=== PATIENT | female | born 1970 | race Caucasian/White ===

== ENCOUNTER 2019-09-13 00:44 | Inpatient (IN) | payer MEDICARE, OTHER ==
[~2019-09-13] VITALS: Ht 180.3 cm; Wt 145.7 kg
--- NOTE | 2019-09-13 02:26 | NUR ---
unable to obtain blood draw due to patient with no vein to obtain blood. Dr Castro aware.
--- NOTE | 2019-09-13 04:42 | NUR ---
Patient sleeping on gurny in room with no distress noted.
--- NOTE | 2019-09-13 05:00 | NUR ---
Dr Castro unable to obtain blood sample at this time.
--- NOTE | 2019-09-13 06:40 | NUR ---
Informed warehouse team leader of need of Piccline.
[2019-09-13 07:12] LABS: *BILIRUBIN,URIN NEGATIVE (NEGATIVE); *BLOOD, URINE NEGATIVE (NEGATIVE); *CLARITY,URINE CLEAR (CLEAR); *COLOR,URINE YELLOW (YELLOW); *KETONES,URINE NEGATIVE (NEGATIVE); *UROBILINOGEN,URINE 0.2 E.U./dl (NORMAL); LEUKOCYTE ESTERASE ,URINE NEGATIVE (NEGATIVE); NITRITE, URINE NEGATIVE (NEGATIVE); PH,URINE 6.5 (5.0-8.0); UGLUCOSE NEGATIVE (NEGATIVE)
--- NOTE | 2019-09-13 07:18 | NUR ---
Patient refused CT scan@this time, MD is aware, pending PICC line insertion.
[2019-09-13 07:27] LABS: *AMPHETAMINE, URINE NEGATIVE (NEGATIVE); *BARBITURATE, URINE NEGATIVE (NEGATIVE); *CANNABINOID, URINE NEGATIVE (NEGATIVE); *COCCAINE, URINE NEGATIVE (NEGATIVE); *OPIATE, URINE POSITIVE (NEGATIVE); *PHENCYCLIDINE SCREEN,URINE NEGATIVE (NEGATIVE)
[2019-09-13 08:02] LABS: BACTERIA,URINE NONE SEEN /HPF (NONE SEEN); RBC,URINE NONE SEEN /HPF (0-3); SQUAMOUS EPITHELIAL CELL,UR MODERATE /HPF (NONE SEEN); WBC,URINE 0-3 /HPF (0-3)
[2019-09-13] MEDS ORDERED: LORAZEPAM 1 MG TABLET ONE (08:08)
[2019-09-13] MEDS ORDERED: LORAZEPAM 0.5 MG TABLET PO ONE (08:15)
--- NOTE | 2019-09-13 08:47 | NUR ---
Patient is resting comfortably on gurney with eyes closed, high anand's position, respiration:easy, calm, NAD.
[2019-09-13] MEDS ORDERED: ACETAMINOPHEN ES 500 MG TABLET ONE (08:59)
[2019-09-13] MEDS ORDERED: ASPIRIN 325 MG TABLET ONE (09:00)
[2019-09-13] MEDS ORDERED: ASPIRIN 325 MG TABLET PO ONE (09:00)
--- NOTE | 2019-09-13 10:15 | NUR ---
Heart rate ranges from 130's/min to high 140's/min, MD is aware. No new orders@this time.
--- NOTE | 2019-09-13 10:22 | NUR ---
Patient used bedside commode to do BM, still for PICC line insertion@this time, no acute change in condition seen. Patient wants IV morphine & MD rufus notified.
--- NOTE | 2019-09-13 10:54 | NUR ---
Patient had normal BM using bedside commode. Stephanie-anal care assisted. PICC line nurse is here to do PICC insertion.
[2019-09-13] MEDS ORDERED: MORPHINE SULFATE 2 MG/1 ML DISP.SYRIN IV ONE ×3 (11:00→20:00)
[2019-09-13] MEDS ORDERED: AMIODARONE HCL IV 150 MG in IV DEXTROSE 5% 100 ML IV ONE (11:00)
[2019-09-13] MEDS ORDERED: LORAZEPAM 2 MG/1 ML VIAL IV ONE (11:00)
[2019-09-13] MEDS ORDERED: LORAZEPAM 2 MG/1 ML VIAL ONE (11:36)
[2019-09-13] MEDS ORDERED: MORPHINE SULFATE 2 MG/1 ML DISP.SYRIN ONE (11:36)
[2019-09-13 11:55] LABS: BASOPHILS # (AUTO) 0.1 K/uL (0.0-8.0); BASOPHILS % (AUTO) 0.8 % (0.0-2.0); EOSINOPHILS # (AUTO) 0.1 K/uL (0.0-0.7); EOSINOPHILS % (AUTO) 0.9 % (0.0-7.0); LYMPHOCYTES # (AUTO) 1.2 K/uL (20.0-40.0); LYMPHOCYTES % (AUTO) 11.4 % (20.5-51.5); MEAN CORPUSCULAR HGB CONC 33 g/dL (32.3-35.6); MEAN CORPUSCULAR VOLUME 84.1 fL (75.5-95.3); MONOCYTES # (AUTO) 0.8 K/uL (2.0-10.0); MONOCYTES % (AUTO) 7.6 % (0.0-11.0); NEUTROPHILS # (AUTO) 8.5 K/uL (1.8-8.9); NEUTROPHILS % (AUTO) 79.3 % (38.5-71.5); PLATELET COUNT (AUTO) 315 K/uL (179-408); RED BLOOD CELL COUNT(AUTO) 4.28 MIL/uL (3.63-4.92); WHITE BLOOD COUNT (AUTO) 10.8 K/uL (3.8-11.8)
--- NOTE | 2019-09-13 12:02 | NUR ---
Patient wants more Morphine, MD is notified.
[2019-09-13 12:09] LABS: ETHANOL < 3 MG/DL (0-0)
[2019-09-13 12:16] LABS: CARBON DIOXIDE 24 mmol/L (21-32); CHLORIDE 109 mmol/L (98-107); CREATININE 0.6 mg/dL (0.6-1.3); GLUCOSE 91 mg/dL (74-106); POTASSIUM 3.6 mmol/L (3.5-5.1); UREA NITROGEN, BLOOD 12 mg/dL (7-18)
[2019-09-13 12:20] LABS: ALANINE AMINOTRANSFERASE 28 U/L (14-59); ALKALINE PHOSPHATASE 73 U/L (50-136); ASPARTATE AMINOTRANSFERASE 24 U/L (15-37); BILIRUBIN,DIRECT 0.1 mg/dL (0.0-0.2); BILIRUBIN,TOTAL 0.2 mg/dL (0.2-1.0); TOTAL PROTEIN, SERUM 6.4 g/dL (6.4-8.2)
[2019-09-13 12:23] LABS: ACETAMINOPHEN < 2.0 ug/mL (10-30)
[2019-09-13 12:30] LABS: THYROID STIMULATING HORMONE 0.692 mIU/mL (0.358-3.740)
--- NOTE | 2019-09-13 12:44 | NUR ---
ALEX Augustin is here & evaluating the patient.
--- NOTE | 2019-09-13 12:56 | NUR ---
Patient is eating cardiac tray with good appetite, for transfer to 3rd floor as soon as possible.
[2019-09-13] MEDS ORDERED: Z GUARD REMEDY PASTE 57 GM TUBE TOP PRN (13:15)
[2019-09-13] MEDS ORDERED: HYDROCODONE/APAP 10-325 MG TABLET PO PRN (13:15)
[2019-09-13] MEDS ORDERED: HYDROCODONE/APAP 5-325MG TABLET PO PRN (13:15)
[2019-09-13] MEDS ORDERED: ACETAMINOPHEN 325 MG TABLET PO PRN (13:15)
--- NOTE | 2019-09-13 13:30 | NUR ---
Patient is ready to move to 3rd floor telemetry unit. ER registration staff Rhett notified for "roll-over" process so patient can go to telemetry floor. OUT for lunch, endorsed to PING Valencia accordingly.
[2019-09-13] MEDS ORDERED: LORAZEPAM 0.5 MG TABLET PO PRN (14:00)
--- NOTE | 2019-09-13 14:30 | NUR ---
Admitted 49 year old female to telemetry with dx of afib with RVR. AAOx4. Rapid afib on monitor. Initial assessment completed. No s/s of acute distress at this time. Receiving 2L o2 via NC. PICC on SAMUEL intact and patent. Safety measures implemented. Call light within reach. Will continue to monitor.
--- NOTE | 2019-09-13 14:38 | NUR ---
ER registraion staff Rhett said that this patient needs insurance notification & authorization. Patient is seen sleeping, no acute change seen. Heart rate ranges from high 110's/min to 130's/min. updated re: admission process.
--- NOTE | 2019-09-13 15:14 | NUR ---
Patient left ER in stable condition.
[2019-09-13] MEDS ORDERED: DILTIAZEM HCL 25 MG IV IV ONE (15:49)
[2019-09-13 15:50] VITALS: BP 113/78
[2019-09-13] MEDS: METOPROLOL SUCCINATE XL 50 MG TAB.SR.24H PO SCH (15:56)
[2019-09-13] MEDS: APIXABAN 5 MG TABLET PO SCH (18:16)
[2019-09-13] MEDS: ONDANSETRON 4 MG/2 ML VIAL IV PRN (18:33)
--- NOTE | 2019-09-13 19:00 | NUR ---
PATIENT ALERT ORIENTED, NO SOB NO CHEST PAIN, TELE MONITOR A FIB WITH RVR, PATIENT WAS SEEN BY BLUEPRINT MACHINE OPERATOR WITH ORDERS ALREADY. PATIENT HAS ANXIETY, PATIENT REFUSING TO TAKE ATIVAN 1MG PO THAT WAS PRESCRIBE BY MD. PATIENT IN BED EATING AND DRINKING, NO S/S OF DISTRESS AT THIS TIME. PASCUAL JIMENEZ WAS AWARE OF PATIENT REQUEST OF ATIVAN IV, AND MORPHINE VIA IV ALSO, WILL CALL PASCUAL JIMENEZ AGAIN FOR THE REQUEST.
--- NOTE | 2019-09-13 19:54 | NUR ---
PATIENT REQUESTING MORPHINE IV AND ATIVAN IV ALSO. NOTIFY PASCUAL JIMENEZ WITH ORDER TO GIVE MORPHINE 2MG IV ONE TIME ONLY, AND TO GIVE ATIVAN 1MG PO PREVIOUSLY ORDERED.
[2019-09-13] MEDS: LORAZEPAM 1 MG TABLET PO PRN (20:03)
[2019-09-13] MEDS: DILTIAZEM HCL 90 MG TABLET PO SCH (20:08)
[2019-09-13 20:32] VITALS: BP 116/67
--- NOTE | 2019-09-13 21:29 | NUR ---
PATIENT REQUESTING BENADRY FOR ITCHING, GUIAFENESEN FOR CONGESTION. NOTIFY PASCUAL JIMENEZ LEFT A MESSAGE AWAITING FOR RESPONSE. PATIENT ALERT ORIENTED, NO S/S OF DISTRESS, CONT TO MONITOR.
[2019-09-14] VITALS (10 sets, daily range): BP systolic 97–135; BP diastolic 49–87
--- NOTE | 2019-09-14 01:06 | NUR ---
PATIENT REFUSED LAB DRAW TROPONIN, EXPLAINED THE RISK AND BENEFIT. NOTIFY DIMTRY HATCHERY EMPLOYEE PATIENT REQUEST FOR MORPINE, ATIVAN AND BENEDRYL, WITH ORDERS. PATIENT NON COMPLAINT WITH CARE.
[2019-09-14] MEDS ORDERED: MORPHINE SULFATE 2 MG/1 ML DISP.SYRIN IV ONE ×2 (01:15→05:45)
[2019-09-14] MEDS ORDERED: LORAZEPAM 2 MG/1 ML VIAL IV PRN (01:15)
[2019-09-14] MEDS ORDERED: diphenhydrAMINE 25 MG CAP PO PRN (01:15)
--- NOTE | 2019-09-14 05:32 | NUR ---
NOTIFY ANATOLY PETERS SERVICE CAR DRIVER THAT PATIENT HAS GEN BODY AND REQUESTING MORPHINE, NOTIFY ANATOLY THAT PATIENT HAS NARCO ORDER BUT PATIENT ALLERGIC TO TYLENOL. ANATOLY WITH ORDER OF MORPHINE 2MG IV ONE TIME ORDER AGAIN.
[2019-09-14 06:59] LABS: BASOPHILS # (AUTO) 0.1 K/uL (0.0-8.0); BASOPHILS % (AUTO) 1.2 % (0.0-2.0); EOSINOPHILS # (AUTO) 0.2 K/uL (0.0-0.7); EOSINOPHILS % (AUTO) 2.5 % (0.0-7.0); HEMOGLOBIN 11.3 g/dL (10.9-14.3); LYMPHOCYTES # (AUTO) 1.5 K/uL (20.0-40.0); LYMPHOCYTES % (AUTO) 18.9 % (20.5-51.5); MEAN CORPUSCULAR HEMOGLOBIN 27.8 uug (24.7-32.8); MEAN CORPUSCULAR HGB CONC 32 g/dL (32.3-35.6); MEAN CORPUSCULAR VOLUME 86.4 fL (75.5-95.3); MONOCYTES # (AUTO) 0.7 K/uL (2.0-10.0); NEUTROPHILS # (AUTO) 5.4 K/uL (1.8-8.9); NEUTROPHILS % (AUTO) 68.4 % (38.5-71.5); PLATELET COUNT (AUTO) 286 K/uL (179-408); RED BLOOD CELL COUNT(AUTO) 4.05 MIL/uL (3.63-4.92); WHITE BLOOD COUNT (AUTO) 7.8 K/uL (3.8-11.8)
--- NOTE | 2019-09-14 07:10 | NUR ---
PATIENT ALERT ORIENTED, PATIENT NEEDY, REQUEST MULTIPLE TIME FOR PUDDING, SODAS DESPITE SANDWICHES WAS GIVEN BEFORE BEDTIME. PATIENT SLEEP INTERMITTENTLY, WATCHING CLOCK, GIVEN MORPHINE MULTIPLE TIMES FOR PAIN, AND ATIVAN. PATIENT HAS MANIPULATIVE BEHAVIOR, SEEK DIFFERENT KIND DRUGS. MD WAS AWARE OF THE PATIENT MULTIPLE DRUGS REQUEST.
--- NOTE | 2019-09-14 07:30 | NUR ---
Received patient in bed, awake and verbally responsive. No signs of distress noted. No SOB. Will clarify pain medication to REED OR WIND INSTRUMENT TUNER Augustin, kept clean and comfortable. Will continue to monitor.
[2019-09-14 07:33] LABS: CREATININE 1.1 mg/dL (0.6-1.3); POTASSIUM 4.2 mmol/L (3.5-5.1)
[2019-09-14 07:34] LABS: PHOSPHOROUS 4.8 mg/dL (2.5-4.9)
[2019-09-14] MEDS: DILTIAZEM HCL 90 MG TABLET PO SCH ×2 (08:13→20:25)
[2019-09-14] MEDS: METOPROLOL SUCCINATE XL 50 MG TAB.SR.24H PO SCH (08:14)
[2019-09-14] MEDS: LORAZEPAM 1 MG TABLET PO PRN ×2 (08:14→16:14)
[2019-09-14] MEDS: APIXABAN 5 MG TABLET PO SCH ×2 (08:16→16:12)
[2019-09-14 08:57] LABS: THYROID STIMULATING HORMONE 1.601 mIU/mL (0.358-3.740)
[2019-09-14] MEDS: ONDANSETRON 4 MG/2 ML VIAL IV PRN (09:44)
[2019-09-14] MEDS: FUROSEMIDE 40 MG TABLET PO SCH ×2 (11:15→11:32)
[2019-09-14] MEDS ORDERED: OXYCODONE HCL 5 MG TABLET PO PRN (11:15)
[2019-09-14] MEDS: OXYCODONE HCL 5 MG TABLET PO PRN (11:35)
[2019-09-14] MEDS: BENZONATATE 100 MG CAPSULE PO PRN (12:50)
--- NOTE | 2019-09-14 12:57 | NUR ---
Patient refused lasix 40 mg tablet PO, explained risk and benefits, still refused.
--- NOTE | 2019-09-14 13:14 | NUR ---
Weaned to Room Air, patient saturating 97%. No signs of SOB.
--- NOTE | 2019-09-14 16:30 | NUR ---
Seen by Dr. Denney with Order of LAsix 20mg IV, and Amiodararone drip. Patient will be transferred to CCU.
[2019-09-14] MEDS ORDERED: AMIODARONE HCL IV 900 MG in IV DEXTROSE 5% 482 ML IV PRN (17:00)
[2019-09-14] MEDS ORDERED: AMIODARONE HCL IV 150 MG in IV DEXTROSE 5% 100 ML IV ONE (17:00)
--- NOTE | 2019-09-14 17:00 | NUR ---
Gave report to Thalia CCIvette.
[2019-09-14] MEDS: FUROSEMIDE 20 MG/2 ML VIAL IV SCH (17:15)
--- NOTE | 2019-09-14 17:45 | NUR ---
PATIENT BROUGHT UP TO THE UNIT BY SHERI OSEGUERA. RECIEVED REPORT FROM ALEXX. PATIENT ROLLING INTO THE UNIT AND IS ASKING FOR PAIN MEDICATION, A NEW PRIMARY DOCTOR, AND WANTS TO TALK TO THE HEALTH SERVICE WORKER. PATIENT WAS BROUGHT UP TO THE ICU TO INITIATE AMIODARONE PER PROTOCOL. PATIENT ON IV LASIX AND PLACED AMANDA.
[2019-09-14] MEDS: METOPROLOL TARTRATE 50 MG TABLET PO SCH (20:25)
[2019-09-14] MEDS: MORPHINE SULFATE 2 MG/1 ML DISP.SYRIN IV PRN (20:26)
[2019-09-14] MEDS: GUAIFENESIN/DEXTROMETHORPHAN 5 ML UDC PO PRN (21:26)
[2019-09-14] MEDS: LORAZEPAM 2 MG/1 ML VIAL IV PRN (22:08)
[2019-09-14] MEDS: diphenhydrAMINE 50 MG/1 ML VIAL IV PRN (22:45)
[2019-09-15] VITALS (11 sets, daily range): BP systolic 95–144; BP diastolic 53–75
[2019-09-15] MEDS: MORPHINE SULFATE 2 MG/1 ML DISP.SYRIN IV PRN ×6 (00:15→18:07)
[2019-09-15] MEDS: OXYCODONE HCL 5 MG TABLET PO PRN ×2 (01:11→09:04)
[2019-09-15] MEDS: GUAIFENESIN/DEXTROMETHORPHAN 5 ML UDC PO PRN (02:19)
[2019-09-15] MEDS ORDERED: BENZONATATE 100 MG CAPSULE ONE (02:28)
[2019-09-15] MEDS: LORAZEPAM 2 MG/1 ML VIAL IV PRN (03:20)
[2019-09-15] MEDS: BENZONATATE 100 MG CAPSULE PO PRN (04:14)
[2019-09-15] MEDS: diphenhydrAMINE 50 MG/1 ML VIAL IV PRN ×3 (06:03→20:25)
[2019-09-15] MEDS: DILTIAZEM HCL 90 MG TABLET PO SCH ×2 (08:36→21:14)
[2019-09-15] MEDS: METOPROLOL TARTRATE 50 MG TABLET PO SCH ×2 (08:37→18:32)
[2019-09-15] MEDS: APIXABAN 5 MG TABLET PO SCH ×2 (08:38→16:29)
[2019-09-15] MEDS: FUROSEMIDE 20 MG/2 ML VIAL IV SCH (08:38)
[2019-09-15] MEDS: LORAZEPAM 1 MG TABLET PO PRN ×2 (09:03→20:25)
--- NOTE | 2019-09-15 09:30 | NUR ---
REPORT GIVEN TO HOMER RN INFORMED ON MEDICATION REGIMEN PATIENT REQUESTS. PATIENT IS STABLE ON 2L NC, AFIB CONTROLLED AND ON AMIODARONE DRIP 0.5MG UNTIL 1830 PER PROTOCOL.
[2019-09-15 10:48] LABS: BASOPHILS # (AUTO) 0.1 K/uL (0.0-8.0); BASOPHILS % (AUTO) 1.1 % (0.0-2.0); EOSINOPHILS # (AUTO) 0.4 K/uL (0.0-0.7); HEMATOCRIT 35.1 % (31.2-41.9); HEMOGLOBIN 11.3 g/dL (10.9-14.3); LYMPHOCYTES # (AUTO) 1.4 K/uL (20.0-40.0); LYMPHOCYTES % (AUTO) 14.9 % (20.5-51.5); MEAN CORPUSCULAR HEMOGLOBIN 27.8 uug (24.7-32.8); MEAN CORPUSCULAR HGB CONC 32 g/dL (32.3-35.6); MONOCYTES # (AUTO) 0.7 K/uL (2.0-10.0); MONOCYTES % (AUTO) 7.3 % (0.0-11.0); NEUTROPHILS # (AUTO) 6.9 K/uL (1.8-8.9); NEUTROPHILS % (AUTO) 72.7 % (38.5-71.5); PLATELET COUNT (AUTO) 304 K/uL (179-408); RED BLOOD CELL COUNT(AUTO) 4.08 MIL/uL (3.63-4.92); WHITE BLOOD COUNT (AUTO) 9.5 K/uL (3.8-11.8)
--- NOTE | 2019-09-15 11:00 | NUR ---
Received pt from ICU transferred to [facility]. Pt alert and oriented x 4. Pt very obsessed about her ATIVAN, Benadryl, and MORPHINE. Told pt that those are as needed medications wrote the medications and their frequencys on paper for pt to see when her next prn meds will be due. TELE AFIB controlled 's
[2019-09-15 11:02] LABS: CREATININE 1.2 mg/dL (0.6-1.3); POTASSIUM 3.6 mmol/L (3.5-5.1)
[2019-09-15] MEDS: MAGNESIUM HYDROXIDE 30 ML LIQUID UDC PO PRN (13:50)
[2019-09-15] MEDS ORDERED: LORAZEPAM 2 MG/1 ML VIAL IV ONE (15:00)
--- NOTE | 2019-09-15 15:00 | NUR ---
PT asking for her ativan. Pt looked calm and collected watching her tv, no facial grimacing noted, pt breathing comfortably. However pt states that she feels anxious. Ativan given for anxiety iv x 1 as ordered.
[2019-09-15] MEDS: LACTULOSE 20 G/30 ML LIQUID UDC PO PRN (15:16)
--- NOTE | 2019-09-15 16:00 | NUR ---
Pt looked calm and collected watching her tv, no facial grimacing noted, pt breathing comfortably as prior to giving the ativan. Pt states the ativan was effective.
--- NOTE | 2019-09-15 18:00 | NUR ---
Please see written orders for morphine 2mg x [address] genao
[2019-09-15] MEDS: Z GUARD REMEDY PASTE 57 GM TUBE TOP SCH (21:14)
[2019-09-15] MEDS: ONDANSETRON 4 MG/2 ML VIAL IV PRN (21:14)
--- NOTE | 2019-09-15 21:30 | NUR ---
ALL DUE MEDICATIONS GIVEN AT THIS TIME. PT VERY PARTICULAR AND NEEDY, ALL NEEDS ATTENDED PROMPTLY. DESPITE ALL MEDICATIONS GIVEN ORDERED, PATIENT STILL IS COMPLAINING OF ANXIETY AND INABILITY TO SLEEP. ATIVAN 1 MG PO GIVEN AT AROUND 2019 ORDERED, WELL BENADRYL 50 MG IVP. BARBARA PAGED, AWAITING CALL BACK. CARDIO ALSO CONTACTED TO F/UP IF HIS VISIT IS TODAY PATIENT CLAIMS. CURRENTLY CONTACTING CARDIO ON HOLD AT THIS TIME. AFIB ON MONITOR, CONTROLLED AT 88-92.
--- NOTE | 2019-09-15 21:42 | NUR ---
SPOKE WITH DR. TOMLINSON REGARDING PATIENT'S CONCERNS ABOUT LASIX, DISCUSSION MADE AND CAREFULLY EXPLAINED TO PATIENT THAT ADDING LASIX THERAPY IS NOT NECESSARY AT THIS TIME. WILL CONTINUE TO MONITOR PATIENT AND GO FROM THERE.
--- NOTE | 2019-09-15 21:57 | NUR ---
NNO AT THIS TIME FROM BARBARA JOHNSON. WILL INITIATE NONPHARMACOLOGICAL METHODS OF MANAGING ANXIETY/SLEEP. PATIENT GIVEN EXPLANATION ON DISEASE PROCESS AND EFFECTS OF TOO MUCH NARCOTICS ON BODY, PATIENT UNHAPPY BUT VERBALIZED UNDERSTANDING. WILL CONTINUE TO MONITOR.
[2019-09-16] MEDS ORDERED: ZOLPIDEM 5 MG TABLET PO SCH (00:15)
--- NOTE | 2019-09-16 00:15 | NUR ---
PT STILL C/O INABILITY TO SLEEP. GROCERY STORE MANAGER MD CONTACTED, RECEIVED NEW ORDERS FOR ONE TIME DOSE OF AMBIEN. WILL ADMINISTER AND CONTINUE TO MONITOR PATIENT. BP:108/62, AFIB CONTROLLED ON MONITOR AT 90-95.
[2019-09-16] MEDS ORDERED: ZOLPIDEM 5 MG TABLET ONE (00:39)
[2019-09-16] MEDS: METOPROLOL TARTRATE 50 MG TABLET PO SCH ×5 (00:40→21:56)
[2019-09-16] MEDS: MORPHINE SULFATE 2 MG/1 ML DISP.SYRIN IV PRN ×3 (00:41→09:11)
[2019-09-16] MEDS: diphenhydrAMINE 50 MG/1 ML VIAL IV PRN ×4 (03:03→23:16)
[2019-09-16] MEDS: LORAZEPAM 1 MG TABLET PO PRN ×2 (04:53→12:57)
[2019-09-16 05:07] VITALS: BP 105/69
--- NOTE | 2019-09-16 07:16 | NUR ---
Pt slept intermittently for about 6-7 hours. Pt still claiming that she has not slept, even if she did. Verbalized that she wants to sleep continuously vs waking up intermittently. Provided active listening. Endorsed accordingly.
--- NOTE | 2019-09-16 08:00 | NUR ---
Assisted pt to commode from bed to commode with SBA. Pt able to stand up and move all by herself with stand by assistance. pt had large bm. Discussed plan of care with pt to limit fluid intake to prevent congestion. Pt agreeable with plan of care. Call light is within reach
--- NOTE | 2019-09-16 09:00 | NUR ---
Witnessed patient ambulating around her room to the door and bathroom with good perfect balance.
[2019-09-16] MEDS: FUROSEMIDE 20 MG/2 ML VIAL IV SCH (09:07)
[2019-09-16] MEDS: APIXABAN 5 MG TABLET PO SCH ×2 (09:09→17:40)
[2019-09-16] MEDS: DILTIAZEM HCL 90 MG TABLET PO SCH (09:10)
[2019-09-16] MEDS: Z GUARD REMEDY PASTE 57 GM TUBE TOP SCH (09:14)
--- NOTE | 2019-09-16 10:00 | NUR ---
Pt consistently asking drinking lemon qagan tayagungin and noble. Instructed the glass bender and patient that she cannot have anymore fluid secondary to prevent any further congestion and pt is on lasix 20mg iv.
[2019-09-16] MEDS: LACTULOSE 20 G/30 ML LIQUID UDC PO PRN ×2 (10:08→20:13)
[2019-09-16] MEDS: ONDANSETRON 4 MG/2 ML VIAL IV PRN ×2 (11:12→20:13)
--- NOTE | 2019-09-16 11:15 | NUR ---
X ray of right hand and right knee ordered per dr genao. Pt c/o pain on sites. pt able to have good grasp and ROM on right hand. Pt c/o pain on right knee - pt states she fell prior to going to the hospital and that her right knee is in pain.
--- NOTE | 2019-09-16 11:44 | NUR ---
landfill gas technician here to pick up and delivery driver pt on wheelchair. pt states that she cannot stand up by herself. Told tech that i witnessed pt go from bed to commode earlier with SBA. pt continues to refuse going on wheelchair.
[2019-09-16 11:54] VITALS: BP 105/55
[2019-09-16] MEDS ORDERED: TRAZODONE 50 MG TABLET PO PRN (14:00)
[2019-09-16] MEDS ORDERED: LEVALBUTEROL HCL NEB 0.63 MG/3 ML NEBU NEB PRN (14:00)
[2019-09-16] MEDS: OXYCODONE HCL 5 MG TABLET PO PRN ×3 (14:24→23:08)
[2019-09-16] MEDS: FUROSEMIDE 40 MG TABLET PO SCH (14:24)
[2019-09-16] MEDS: DIAZEPAM 10 MG TABLET PO PRN (15:17)
[2019-09-16 16:26] VITALS: BP 104/72
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
[2019-09-16] MEDS ORDERED: ZOLPIDEM 5 MG TABLET PO PRN (18:00)
--- NOTE | 2019-09-16 18:07 | NUR ---
PT has been afib controlled at 80's mostly throughout the day. Pt is in no acute distress. Pt had blanche bm - lactulose given earlier was effective. Call light is within reach.
[2019-09-16] MEDS: DILTIAZEM HCL 60 MG TABLET PO SCH (20:13)
[2019-09-16] MEDS ORDERED: DIGOXIN 250 MCG TABLET PO ONE (20:30)
[2019-09-16] MEDS ORDERED: DILTIAZEM HCL 90 MG TABLET PO SCH (21:00)
[2019-09-16 21:09] VITALS: BP 109/79
--- NOTE | 2019-09-16 21:25 | NUR ---
Patient received at 1900 calm and appears very sleepy. Per AM nurse, patient just got pain medication: Oxy IR 10 mg. However, as soon as I entered the room, patient is already asking RN to contact the doctor for more medications. AM nurse just gave report that medications were changed in the morning to which patient agreed to. Patient is also asking about cardiac consult and how she is not comfortable with her current Lasix dose. Reminded her of what was ordered in the morning. Also reinforced education on fluid restriction since she keeps asking for more fluids at bedside. Patient requested for Ambien at 2030, given but now patient is stating that she is shaking, itching and just feels generalized discomfort. Dr. Sesay notified. Active listening also provided to patient and listened to all her concerns. However, also gave her education on how all these medications can affect her short term vs terminal make up operator and how doctors have to consider a variety of factors before they are able to order all these medications for her. Patient appeared to be listening. Dr Woods made rounds, saw and examined patient. New orders in placed will carryout. Dr. Sesay also responded with new orders, and ordered Psych consult as well. Will carry out new orders and continue to monitor patient and provide needs as much as possible.
[2019-09-16] MEDS ORDERED: diphenhydrAMINE 50 MG/1 ML VIAL IV ONE (21:26)
[2019-09-16] MEDS ORDERED: LORAZEPAM 2 MG/1 ML VIAL IV ONE (21:28)
--- NOTE | 2019-09-16 22:30 | NUR ---
All due medications given about 30 minutes ago. Pt remains high fowlers position at this time. Eyes are closed and appears to be resting well. Lights were turned off to allow her to relax. Will continue frequent roundings and monitor patient. Afib 95- 103 on monitor.
[2019-09-16] MEDS: MAGNESIUM HYDROXIDE 30 ML LIQUID UDC PO PRN (23:49)
[2019-09-17 00:47] VITALS: BP 110/69
[2019-09-17] MEDS ORDERED: ZOLPIDEM 5 MG TABLET PO STA (01:40)
[2019-09-17] MEDS: BENZONATATE 100 MG CAPSULE PO PRN (01:50)
[2019-09-17] MEDS ORDERED: DIGOXIN 250 MCG TABLET PO ONE ×2 (03:00→09:00)
[2019-09-17] MEDS: DIAZEPAM 10 MG TABLET PO PRN (03:15)
[2019-09-17] MEDS: OXYCODONE HCL 5 MG TABLET PO PRN ×3 (03:16→11:32)
[2019-09-17] MEDS: ONDANSETRON 4 MG/2 ML VIAL IV PRN (06:31)
[2019-09-17 07:10] LABS: BASOPHILS # (AUTO) 0.1 K/uL (0.0-8.0); BASOPHILS % (AUTO) 0.7 % (0.0-2.0); EOSINOPHILS # (AUTO) 0.5 K/uL (0.0-0.7); EOSINOPHILS % (AUTO) 4.7 % (0.0-7.0); HEMATOCRIT 33.8 % (31.2-41.9); HEMOGLOBIN 11.1 g/dL (10.9-14.3); LYMPHOCYTES # (AUTO) 1.7 K/uL (20.0-40.0); LYMPHOCYTES % (AUTO) 17.1 % (20.5-51.5); MEAN CORPUSCULAR HEMOGLOBIN 28.8 uug (24.7-32.8); MEAN CORPUSCULAR HGB CONC 33 g/dL (32.3-35.6); MEAN CORPUSCULAR VOLUME 87.9 fL (75.5-95.3); MONOCYTES # (AUTO) 0.8 K/uL (2.0-10.0); MONOCYTES % (AUTO) 7.8 % (0.0-11.0); NEUTROPHILS # (AUTO) 7.1 K/uL (1.8-8.9); NEUTROPHILS % (AUTO) 69.7 % (38.5-71.5); PLATELET COUNT (AUTO) 314 K/uL (179-408); RED BLOOD CELL COUNT(AUTO) 3.84 MIL/uL (3.63-4.92); WHITE BLOOD COUNT (AUTO) 10.1 K/uL (3.8-11.8)
[2019-09-17 07:28] LABS: BILIRUBIN,TOTAL 0.2 mg/dL (0.2-1.0); CREATININE 1.1 mg/dL (0.6-1.3); MAGNESIUM 2.2 mg/dL (1.8-2.4); PHOSPHOROUS 4.8 mg/dL (2.5-4.9); TOTAL PROTEIN, SERUM 7.8 g/dL (6.4-8.2)
[2019-09-17] MEDS ORDERED: ALBUTEROL SULFATE 1.25 MG/3 ML NEBU NEB PRN (07:30)
--- NOTE | 2019-09-17 08:00 | NUR ---
Pt alert and oriented x 4. Pt is in no acute distress. Discussed plan of care with patient re: Pain management and fall precautions.
[2019-09-17] MEDS: FOLIC ACID 1 MG TABLET PO SCH (08:12)
[2019-09-17] MEDS: MULTIVITAMINS,THERAPEUTIC TABLET PO SCH (08:12)
[2019-09-17] MEDS: THIAMINE HCL 100 MG TABLET PO SCH (08:12)
[2019-09-17] MEDS: FUROSEMIDE 40 MG TABLET PO SCH (08:12)
[2019-09-17] MEDS: DILTIAZEM HCL 60 MG TABLET PO SCH ×2 (08:18→22:11)
[2019-09-17] MEDS: APIXABAN 5 MG TABLET PO SCH ×2 (08:22→16:49)
[2019-09-17] MEDS ORDERED: FUROSEMIDE 20 MG TABLET PO SCH (09:00)
[2019-09-17 11:30] VITALS: BP 102/63
[2019-09-17] MEDS: LACTULOSE 20 G/30 ML LIQUID UDC PO PRN (11:30)
[2019-09-17] MEDS: METOPROLOL TARTRATE 50 MG TABLET PO SCH ×2 (11:31→22:11)
[2019-09-17 15:49] VITALS: BP 106/57
[2019-09-17] MEDS ORDERED: FUROSEMIDE 40 MG/4 ML VIAL IV ONE (16:45)
[2019-09-17 17:12] VITALS: BP 106/57
--- NOTE | 2019-09-17 18:08 | NUR ---
TREASURY CONSULTANT, darkroom worker, Acute Care services director and RN at bed side spoke with pt earlier discussing pt's rights and pt must be discharged today. Dr Medel cleared pt cardiac gentile. Spoke with NELA Skaggs from [facility] secondary pt claiming that we are not giving her cardiac meds. Gave details on when Medications were given. Pt was also c/o not getting medications through her IV. Discussed with NELA Skaggs that her IV meds were changed to PO. Pt voided after having f/c taken out earlier. Gave clothes PANTs x 2 and a SHIRT to patient and homeless RESOURCE SHEET For shelters by case management. Taxi Voucher address for [id number] [facility] [address] [facility] [place] [id number] - [employer] to have pt brass pickler her prescription. Pt is in no acute distress upon discharge.
--- NOTE | 2019-09-17 18:39 | NUR ---
MIDLINE taken off measured cut at 45marker. Pt tolerated MIDLINE Taken off.
--- NOTE | 2019-09-17 18:58 | NUR ---
Called nursing central office repairer supervisor re: pt refusing to leave.
--- NOTE | 2019-09-17 19:00 | NUR ---
PT REFUSING TO BE DISCHARGE AND WANTS HER WHEELCHAIR. RN FLOAT TALKED WITH THE PT. PT IN NO ACUTE DISTRESS. SAFETY AND COMFORT PROVIDED. WILL CONTINUE TO MONITOR.
[2019-09-17 20:56] VITALS: BP 127/84
[2019-09-18 04:00] VITALS: BP 119/71
[2019-09-18] MEDS: OXYCODONE HCL 5 MG TABLET PO PRN (05:25)
--- NOTE | 2019-09-18 05:42 | NUR ---
PT SLEPT INTERMITTENTLY. PT IN NO ACUTE DISTRESS. PRESCRIBED MEDICATION GIVEN AND PT TOLERATED IT WELL. PT GIVEN 0525H OXYIR. PT TOLERATED IT WELL. PT CAN TRANSFER FROM BED TO BEDSIDE COMMODE. SAFETY AND COMFORT PROVIDED. ALL NEEDS ARE MET. WILL ENDORSE TO INCOMING NURSE FOR CONTINUITY OF CARE.
[2019-09-18] MEDS ORDERED: DIGOXIN 250 MCG TABLET PO SCH (09:00)
[2019-09-18] MEDS: FUROSEMIDE 40 MG TABLET PO SCH (09:49)
[2019-09-18] MEDS: FOLIC ACID 1 MG TABLET PO SCH (09:49)
[2019-09-18] MEDS: DILTIAZEM HCL 60 MG TABLET PO SCH (09:49)
[2019-09-18] MEDS: MULTIVITAMINS,THERAPEUTIC TABLET PO SCH (09:50)
[2019-09-18] MEDS: THIAMINE HCL 100 MG TABLET PO SCH (09:50)
[2019-09-18] MEDS: METOPROLOL TARTRATE 50 MG TABLET PO SCH (09:50)
[2019-09-18] MEDS: APIXABAN 5 MG TABLET PO SCH (10:02)
[2019-09-18 11:02] VITALS: BP 121/65
--- NOTE | 2019-09-18 11:45 | NUR ---
DISCHARGE PATIENT TO SELF VIA TAXI WITH WHEELCHAIR, GIVEN VOUCHER FOR TAXI DISCHARGE INSTRUCTION GIVEN AND VERBALIZED UNDERSTANDING, BELONGINGS ACCOUNTED FOR AND SIGNED, ID AND IV REMOVED WITH NO COMPLICATIONS. QUESTIONS AND CONCERNS ADDRESSED. PATIENT IN STABLE CONDITIONS
== END 2019-09-18 11:55 | disposition home or self-care (01) | DRG 308 ==
LOC: ER 00:47 → TELE3 15:03 → CCU 09-14 17:42 → TELE-TD3 09-15 11:15 → TELE3 09-15 18:43 → MEDSURG3 09-17 20:29
PROVIDERS: ADMIT Nurse Practitioner Acute Care; ATTEND Nurse Practitioner Acute Care
PROC: 02HV33Z Insertion of Infusion Device into Superior Vena Cava, Percutaneous Approach (ICD-10-PCS; principal; 2019-09-13)
PROC: B548ZZA Ultrasonography of Superior Vena Cava, Guidance (ICD-10-PCS; 2019-09-13)
PROC: 3E043RZ Introduction of Antiarrhythmic into Central Vein, Percutaneous Approach (ICD-10-PCS; 2019-09-13)
DX: I48.20 Chronic atrial fibrillation, unspecified (principal); I50.23 Acute on chronic systolic (congestive) heart failure; E43 Unspecified severe protein-calorie malnutrition; Z68.41 Body mass index [BMI] 40.0-44.9, adult; F11.20 Opioid dependence, uncomplicated; F13.20 Sedative, hypnotic or anxiolytic dependence, uncomplicated; D68.59 Other primary thrombophilia; E66.01 Morbid (severe) obesity due to excess calories; F10.10 Alcohol abuse, uncomplicated; Y90.0 Blood alcohol level of less than 20 mg/100 ml; Z76.5 Malingerer [conscious simulation]; H54.61 Unqualified visual loss, right eye, normal vision left eye; M19.90 Unspecified osteoarthritis, unspecified site; Z59.0 Homelessness; I42.9 Cardiomyopathy, unspecified; F41.9 Anxiety disorder, unspecified; Z91.14 Patient's other noncompliance with medication regimen; Z79.01 Long term (current) use of anticoagulants; I70.0 Atherosclerosis of aorta; J06.9 Acute upper respiratory infection, unspecified; E11.40 Type 2 diabetes mellitus with diabetic neuropathy, unspecified; Z95.810 Presence of automatic (implantable) cardiac defibrillator; I34.0 Nonrheumatic mitral (valve) insufficiency; J20.9 Acute bronchitis, unspecified
CPT/HCPCS: 36415; 36569; 70030-TC; 71045; 73130; 80307; 83605; 83735; 84100; 84443; 85025; 87086; 93005; 93307; A4663; A9150; G0378; G0480; G0480-TC; J0282; J1200; J1940; J2060; J2270; J2405; J3490; J7060; Q0163